=== PATIENT | female | born 1955 | race Two or more races ===

== ENCOUNTER 2018-04-05 07:28 | Day surgery (SDC) | payer OTHER ==
[~2018-04-05 07:28] MED LIST: LEVO-T25 MCG PO; NEXIUM40 M1 PO; NORVASC5 MG PO; SIMVASTATIN20 MG PO; ZANTAC300 MG PO
== END 2018-04-05 13:40 | disposition home or self-care (01) ==
LOC: CIR.AMB 07:28
DX: M65.842 Other synovitis and tenosynovitis, left hand (principal)

== ENCOUNTER 2018-04-08 07:30 | Outpatient (CLI) | payer OTHER | END 2018-04-08 17:00 | disposition home or self-care (01) | LOC: TOM 07:30 | DX: K57.30 Diverticulosis of large intestine without perforation or abscess without bleeding (principal); R19.4 Change in bowel habit; R19.5 Other fecal abnormalities; K56.690 Other partial intestinal obstruction ==

== ENCOUNTER 2018-04-12 11:06 | Day surgery (SDC) | payer OTHER | END 2018-04-12 14:35 | disposition home or self-care (01) | LOC: AMB-ENDOS 11:06 | DX: K57.30 Diverticulosis of large intestine without perforation or abscess without bleeding (principal); K64.8 Other hemorrhoids; K56.690 Other partial intestinal obstruction ==

== ENCOUNTER 2018-05-11 09:04 | Outpatient (CLI) | payer OTHER | END 2018-05-11 09:15 | disposition home or self-care (01) | LOC: TOM 09:04 | DX: K57.30 Diverticulosis of large intestine without perforation or abscess without bleeding (principal); R19.4 Change in bowel habit; R19.5 Other fecal abnormalities; K56.690 Other partial intestinal obstruction ==

== ENCOUNTER 2020-04-02 08:27 | Outpatient (CLI) | payer OTHER | END 2020-04-02 08:35 | disposition home or self-care (01) | LOC: MAMO-SONO 08:27 | PROVIDERS: ATTEND Obstetrics & Gynecology Maternal & Fetal Medicine | DX: Z12.31 Encounter for screening mammogram for malignant neoplasm of breast (principal); N63.10 Unspecified lump in the right breast, unspecified quadrant; N63.20 Unspecified lump in the left breast, unspecified quadrant; N64.4 Mastodynia; N60.11 Diffuse cystic mastopathy of right breast ==

== ENCOUNTER 2020-04-16 12:55 | Outpatient (CLI) | payer OTHER | END 2020-04-16 13:14 | disposition home or self-care (01) | LOC: NUCLEAR 12:55 | PROVIDERS: ATTEND Obstetrics & Gynecology Maternal & Fetal Medicine | DX: M81.0 Age-related osteoporosis without current pathological fracture (principal) ==

== ENCOUNTER 2022-06-18 07:33 | Outpatient (CLI) | payer OTHER | END 2022-06-18 07:47 | disposition home or self-care (01) | LOC: TOM 07:33 | PROVIDERS: ATTEND Internal Medicine Hepatology | DX: K62.5 Hemorrhage of anus and rectum (principal) ==